=== PATIENT | female | born 1955 | race Caucasian/White ===

== ENCOUNTER → 2016-08-13 | Outpatient (CLI) | payer BC ==
[2013-04-06 09:15] VITALS: BP 155/98
[~2016-08-13] MED LIST: ALLOPURINOL100 MG PO; AMLODIPINE BESYL5 MG PO; CHLORTHALIDONE25 MG PO; FLEXERIL10 MG PO; FLUTICASON0.05 MG/A1 PO; IBUPROFEN800 MG PO; SINGULAIR; See Long Drug Name PO; VITAMIN C500 MG PO
== END ==
LOC: LAB 09:20
DX: I10 Essential (primary) hypertension (principal); D64.9 Anemia, unspecified; M10.9 Gout, unspecified

== ENCOUNTER → 2016-09-14 | Outpatient (CLI) | payer BC ==
[2013-04-06 09:15] VITALS: BP 155/98
== END ==
LOC: MAMMO 07:01
DX: Z12.31 Encounter for screening mammogram for malignant neoplasm of breast (principal)
CPT/HCPCS: G0202

== ENCOUNTER → 2016-09-19 | Outpatient (CLI) | payer BC ==
[2013-04-06 09:15] VITALS: BP 155/98
== END ==
LOC: LAB 08:41
DX: Z01.419 Encounter for gynecological examination (general) (routine) without abnormal findings (principal); D53.9 Nutritional anemia, unspecified; E87.6 Hypokalemia; R73.9 Hyperglycemia, unspecified

== ENCOUNTER → 2016-10-09 | Outpatient (CLI) | payer BC ==
[2013-04-06 09:15] VITALS: BP 155/98
== END ==
LOC: LAB 09:25
DX: J45.20 Mild intermittent asthma, uncomplicated (principal); D53.9 Nutritional anemia, unspecified; I10 Essential (primary) hypertension; E87.6 Hypokalemia

== ENCOUNTER → 2016-11-13 | Outpatient (CLI) | payer BC ==
[2013-04-06 09:15] VITALS: BP 155/98
== END ==
LOC: LAB 09:07
DX: E87.6 Hypokalemia (principal); R60.9 Edema, unspecified; I10 Essential (primary) hypertension

== ENCOUNTER 2017-01-18 08:55 | Outpatient (RCR) | payer BC ==
[2013-04-06 09:15] VITALS: BP 155/98
[2017-02-25] MEDS ORDERED: POTASSIUM CHLO10 ME6 PO (14:16)
[2017-02-25] MEDS ORDERED: ALLOPURINOL300 M1 PO (14:17)
[2017-02-25] MEDS ORDERED: ALDACTONE 25MG25 MG PO (14:17)
[2017-02-25] MEDS ORDERED: PRILOSEC 20MG20 MG PO (14:23)
[2017-02-25] MEDS ORDERED: FLOVENT DI250 MCG/Ac IH (14:23)
== END 2017-01-18 09:30 | disposition home or self-care (01) ==
LOC: PT 08:55
DX: M25.561 Pain in right knee (principal); S76.911D Strain of unspecified muscles, fascia and tendons at thigh level, right thigh, subsequent encounter; Z96.652 Presence of left artificial knee joint; X58.XXXD Exposure to other specified factors, subsequent encounter

== ENCOUNTER → 2017-02-25 | Outpatient (CLI) | payer BC ==
[~2017-02-25] VITALS: Ht 157.5 cm; Wt 122.7 kg
[~2017-02-25] MED LIST changes: +ALDACTONE 25MG25 MG PO; +ALLOPURINOL300 M1 PO; +FLOVENT DI250 MCG/Ac IH; +POTASSIUM CHLO10 ME6 PO; +PRILOSEC 20MG20 MG PO
[2017-02-25 09:45] LABS: PROTHROMBIN TIME 8.9 SECONDS (9.0-12.0)
[2017-02-25 09:50] LABS: BUN/CREATININE RATIO 20.2 (6.0-26.0); CALCIUM 10.2 mg/dL (8.4-10.2)
[2017-02-25 10:00] VITALS: BP 161/99
[2017-02-25 10:09] LABS: PH-URINE 6.5 (5.0 - 8.0); URINE APPEARANCE HAZY; URINE BILIRUBIN NEGATIVE (NEGATIVE); URINE BLOOD NEGATIVE (NEGATIVE); URINE COLOR YELLOW; URINE GLUCOSE NEGATIVE (NEGATIVE); URINE KETONE NEGATIVE (NEGATIVE); URINE LEUKOCYTE ESTERASE NEGATIVE (NEGATIVE); URINE NITRATE NEGATIVE (NEGATIVE); URINE PROTEIN(semi-quant) NEGATIVE (NEGATIVE); URINE UROBILINOGEN NORMAL (NORMAL)
[2017-02-25 10:13] LABS: BASO # 0.1 (0.02-0.10); EOS # 0.4 (0.04-0.40); EOS % 4.1 % (1.0-5.0); HEMATOCRIT 43.5 % (37.0-47.0); HEMOGLOBIN 13.7 g/dL (12.5-16.0); LYMPH# 1.9 (1.50-4.00); MEAN CELL VOLUME 80 fl (78-100); MEAN CORPUSCULAR HEMOGLOBIN 25 pg (27-31); MEAN CORPUSCULAR HGB CONC 32 g/dL (33-37); MEAN PLATELET VOLUME 10.9 fl (7.4-10.4); MONO # 0.5 (0.20-0.80); NEU # 5.8 (1.40-6.50); PLATELET COUNT 274 K/mm3 (130-400); RED BLOOD COUNT 5.47 M/mm3 (4.10-5.30); RED CELL DISTRIBUTION WIDTH 14.9 % (11.5-14.5); WHITE BLOOD COUNT 8.7 K/mm3 (4.8-10.8)
== END ==
LOC: AMSURD 09:12
PROVIDERS: Family Medicine
DX: M25.561 Pain in right knee (principal); E87.6 Hypokalemia; I10 Essential (primary) hypertension; M10.9 Gout, unspecified; D53.9 Nutritional anemia, unspecified

== ENCOUNTER 2017-04-30 09:30 | Outpatient (RCR) | payer BC ==
[2017-02-25 10:00] VITALS: BP 161/99
== END 2017-04-30 10:00 | disposition home or self-care (01) ==
LOC: PT 09:30
DX: Z47.1 Aftercare following joint replacement surgery (principal); Z96.651 Presence of right artificial knee joint

== ENCOUNTER → 2017-07-10 | Outpatient (CLI) | payer BC ==
[2017-02-25 10:00] VITALS: BP 161/99
== END ==
LOC: LAB 14:05
DX: R05 Cough (principal)

== ENCOUNTER → 2017-09-02 | Outpatient (CLI) | payer BC ==
[2017-02-25 10:00] VITALS: BP 161/99
== END ==
LOC: LAB 08:57
DX: R06.02 Shortness of breath (principal)

== ENCOUNTER → 2017-10-11 | Outpatient (CLI) | payer BC ==
[2017-02-25 10:00] VITALS: BP 161/99
== END ==
LOC: LAB 09:10
DX: R73.03 Prediabetes (principal); M10.9 Gout, unspecified

== ENCOUNTER → 2018-02-25 | Outpatient (CLI) | payer BC ==
[2017-02-25 10:00] VITALS: BP 161/99
[2018-02-25 09:37] LABS: CALCIUM 9.9 mg/dL (8.4-10.2)
== END ==
LOC: LAB 09:12
PROVIDERS: Family Medicine
DX: E87.6 Hypokalemia (principal)

== ENCOUNTER → 2018-08-12 | Outpatient (CLI) | payer BC ==
[2017-02-25 10:00] VITALS: BP 161/99
[2018-08-12 09:48] LABS: CALCIUM 9.7 mg/dL (8.4-10.2)
== END ==
LOC: LAB 09:17
PROVIDERS: Family Medicine
DX: E87.6 Hypokalemia (principal)

== ENCOUNTER → 2018-12-09 | Outpatient (CLI) | payer BC ==
[2017-02-25 10:00] VITALS: BP 161/99
[2018-12-09 09:07] LABS: HEMOGLOBIN 13.6 g/dL (12.5-16.0); MEAN PLATELET VOLUME 10.6 fl (7.4-10.4); RED BLOOD COUNT 5.41 M/mm3 (4.10-5.30); RED CELL DISTRIBUTION WIDTH 15.6 % (11.5-14.5); WHITE BLOOD COUNT 7.9 K/mm3 (4.8-10.8)
[2018-12-09 09:26] LABS: ALBUMIN 4.1 g/dL (3.4-4.8)
[2018-12-09 09:28] LABS: TOTAL PROTEIN 7.5 g/dL (6.2-8.1)
[2018-12-09 09:30] LABS: TOTAL BILIRUBIN 0.6 mg/dL (0.2-1.2)
== END ==
LOC: LAB 08:50
PROVIDERS: Family Medicine
DX: E87.6 Hypokalemia (principal); I10 Essential (primary) hypertension; D53.9 Nutritional anemia, unspecified; R73.03 Prediabetes; M10.9 Gout, unspecified

== ENCOUNTER → 2018-12-31 | Outpatient (CLI) | payer BC ==
[2017-02-25 10:00] VITALS: BP 161/99
== END ==
LOC: MAMMO 09:01
DX: Z00.00 Encounter for general adult medical examination without abnormal findings (principal); Z13.6 Encounter for screening for cardiovascular disorders; G47.33 Obstructive sleep apnea (adult) (pediatric); K21.9 Gastro-esophageal reflux disease without esophagitis; M25.473 Effusion, unspecified ankle; E78.6 Lipoprotein deficiency; M85.852 Other specified disorders of bone density and structure, left thigh; M85.851 Other specified disorders of bone density and structure, right thigh

== ENCOUNTER → 2019-01-02 | Outpatient (CLI) | payer BC ==
[2017-02-25 10:00] VITALS: BP 161/99
== END ==
LOC: CARDREHAB 08:32 → CARDLAB 10:41
DX: Z00.00 Encounter for general adult medical examination without abnormal findings (principal); Z13.6 Encounter for screening for cardiovascular disorders; G47.33 Obstructive sleep apnea (adult) (pediatric); K21.9 Gastro-esophageal reflux disease without esophagitis; M25.473 Effusion, unspecified ankle; E87.6 Hypokalemia; M85.80 Other specified disorders of bone density and structure, unspecified site
CPT/HCPCS: A9500

== ENCOUNTER → 2019-01-08 | Outpatient (CLI) | payer BC ==
[2017-02-25 10:00] VITALS: BP 161/99
== END ==
LOC: MAMMO 12:15
DX: N63.21 Unspecified lump in the left breast, upper outer quadrant (principal); N60.02 Solitary cyst of left breast

== ENCOUNTER → 2019-06-10 | Outpatient (CLI) | payer BC ==
[2017-02-25 10:00] VITALS: BP 161/99
[2019-06-10 09:48] LABS: POTASSIUM 3.8 mmol/L (3.5-5.1)
[2019-06-10 09:49] LABS: CALCIUM 9.7 mg/dL (8.3-10.5)
== END ==
LOC: LAB 09:00
PROVIDERS: Family Medicine
DX: E87.6 Hypokalemia (principal)

== ENCOUNTER → 2019-12-21 | Outpatient (CLI) | payer MEDICARE ==
[2017-02-25 10:00] VITALS: BP 161/99
[2019-12-21 09:38] LABS: POTASSIUM 3.9 mmol/L (3.5-5.1)
[2019-12-21 09:39] LABS: CALCIUM 9.8 mg/dL (8.3-10.5)
== END ==
LOC: LAB 09:11
PROVIDERS: Family Medicine
DX: E87.6 Hypokalemia (principal)

== ENCOUNTER → 2020-01-14 | Outpatient (CLI) | payer MEDICARE ==
[2017-02-25 10:00] VITALS: BP 161/99
[2020-01-14 10:38] LABS: HEMATOCRIT 45.1 % (37.0-47.0); HEMOGLOBIN 14.2 g/dL (12.5-16.0); MEAN PLATELET VOLUME 10.2 fl (7.4-10.4); RED BLOOD COUNT 5.59 M/mm3 (4.10-5.30); RED CELL DISTRIBUTION WIDTH 14.6 % (11.5-14.5); WHITE BLOOD COUNT 8.9 K/mm3 (4.8-10.8)
== END ==
LOC: LAB 10:19
PROVIDERS: Family Medicine
DX: M10.9 Gout, unspecified (principal); L43.8 Other lichen planus; M85.80 Other specified disorders of bone density and structure, unspecified site; E87.6 Hypokalemia; Z86.2 Personal history of diseases of the blood and blood-forming organs and certain disorders involving the immune mechanism

== ENCOUNTER → 2020-01-26 | Outpatient (CLI) | payer MEDICARE ==
[2017-02-25 10:00] VITALS: BP 161/99
== END ==
LOC: MAMMO 09:06
DX: Z12.31 Encounter for screening mammogram for malignant neoplasm of breast (principal)

== ENCOUNTER → 2020-10-31 | Outpatient (CLI) | payer MEDICARE ==
[2020-10-31 09:51] LABS: CALCIUM 9.5 mg/dL (8.3-10.5); HEMATOCRIT 43.6 % (37.0-47.0); HEMOGLOBIN 13.8 g/dL (12.5-16.0); MEAN PLATELET VOLUME 10.3 fl (7.4-10.4); RED BLOOD COUNT 5.37 M/mm3 (4.10-5.30); RED CELL DISTRIBUTION WIDTH 14.1 % (11.5-14.5); WHITE BLOOD COUNT 8.4 K/mm3 (4.8-10.8)
[2020-10-31 09:53] LABS: TOTAL PROTEIN 6.9 g/dL (6.2-8.1)
[2020-10-31 09:55] LABS: TOTAL BILIRUBIN 0.5 mg/dL (0.2-1.2)
== END ==
LOC: LAB 09:13
PROVIDERS: Family Medicine
DX: Z13.220 Encounter for screening for lipoid disorders (principal); E87.6 Hypokalemia; Z86.2 Personal history of diseases of the blood and blood-forming organs and certain disorders involving the immune mechanism; Z87.39 Personal history of other diseases of the musculoskeletal system and connective tissue

== ENCOUNTER → 2020-11-25 | Outpatient (CLI) | payer MEDICARE ==
[2020-11-25 09:14] LABS: POTASSIUM 3.9 mmol/L (3.5-5.1)
[2020-11-25 09:16] LABS: CALCIUM 9.7 mg/dL (8.3-10.5)
== END ==
LOC: LAB 08:39
PROVIDERS: Family Medicine
DX: E87.6 Hypokalemia (principal)

== ENCOUNTER → 2021-01-26 | Outpatient (CLI) | payer MEDICARE ==
[2021-01-26 10:02] LABS: POTASSIUM 3.7 mmol/L (3.5-5.1)
[2021-01-26 10:03] LABS: CALCIUM 10.3 mg/dL (8.3-10.5)
== END ==
LOC: MAMMO 08:57
PROVIDERS: Family Medicine
DX: Z13.820 Encounter for screening for osteoporosis (principal); E87.6 Hypokalemia

== ENCOUNTER → 2021-01-26 | Outpatient (CLI) | payer MEDICARE | LOC: MAMMO 09:01 | DX: Z12.31 Encounter for screening mammogram for malignant neoplasm of breast (principal) ==

== ENCOUNTER → 2022-03-29 | Outpatient (CLI) | payer MEDICARE ==
[2022-03-29 09:25] LABS: BASO # 0.05 K/mm3 (0.02-0.10); HEMATOCRIT 47.3 % (37.0-47.0); HEMOGLOBIN 14.6 g/dL (12.5-16.0); LYMPH# 1.49 K/mm3 (1.50-4.00); MEAN CELL VOLUME 83 fl (78-100); MEAN CORPUSCULAR HEMOGLOBIN 26 pg (27-31); MEAN CORPUSCULAR HGB CONC 31 g/dL (33-37); MEAN PLATELET VOLUME 10.3 fl (7.4-10.4); MONO # 0.72 K/mm3 (0.20-0.80); NEU # 7.72 K/mm3 (1.40-6.50); PLATELET COUNT 253 K/mm3 (130-400); RED BLOOD COUNT 5.72 M/mm3 (4.10-5.30); RED CELL DISTRIBUTION WIDTH 14.5 % (11.5-14.5)
[2022-03-29 09:49] LABS: ALBUMIN 4.3 g/dL (3.4-4.8); POTASSIUM 4.1 mmol/L (3.5-5.1)
[2022-03-29 09:50] LABS: CALCIUM 10.4 mg/dL (8.3-10.5)
[2022-03-29 09:51] LABS: TOTAL PROTEIN 7.4 g/dL (6.2-8.1)
[2022-03-29 09:53] LABS: TOTAL BILIRUBIN 0.5 mg/dL (0.2-1.2)
== END ==
LOC: LAB 09:04
PROVIDERS: Family Medicine
DX: U07.1 COVID-19 (principal); I10 Essential (primary) hypertension; R05.9 Cough, unspecified; Z86.2 Personal history of diseases of the blood and blood-forming organs and certain disorders involving the immune mechanism; Z87.39 Personal history of other diseases of the musculoskeletal system and connective tissue; Z13.220 Encounter for screening for lipoid disorders

== ENCOUNTER → 2023-01-02 | Outpatient (CLI) | payer MEDICARE | LOC: LAB 09:23 | DX: Z13.1 Encounter for screening for diabetes mellitus (principal); E66.01 Morbid (severe) obesity due to excess calories ==

== ENCOUNTER → 2023-02-01 | Outpatient (CLI) | payer MEDICARE | LOC: MAMMO 07:57 | DX: Z12.31 Encounter for screening mammogram for malignant neoplasm of breast (principal) ==

== ENCOUNTER → 2023-04-03 | Outpatient (CLI) | payer MEDICARE ==
[2023-04-03 09:01] LABS: HEMATOCRIT 46.9 % (37.0-47.0); HEMOGLOBIN 14.4 g/dL (12.5-16.0); MEAN PLATELET VOLUME 10.1 fl (7.4-10.4); RED BLOOD COUNT 5.55 M/mm3 (4.10-5.30); WHITE BLOOD COUNT 9.7 K/mm3 (4.8-10.8)
[2023-04-03 09:09] LABS: ALBUMIN 4.1 g/dL (3.4-4.8)
[2023-04-03 09:10] LABS: CALCIUM 10.1 mg/dL (8.3-10.5)
[2023-04-03 09:11] LABS: TOTAL PROTEIN 6.9 g/dL (6.2-8.1)
[2023-04-03 09:13] LABS: TOTAL BILIRUBIN 0.4 mg/dL (0.2-1.2)
== END ==
LOC: LAB 08:39
PROVIDERS: Family Medicine
DX: Z13.220 Encounter for screening for lipoid disorders (principal); I10 Essential (primary) hypertension; L43.9 Lichen planus, unspecified; L29.8 Other pruritus; Z86.2 Personal history of diseases of the blood and blood-forming organs and certain disorders involving the immune mechanism; Z87.39 Personal history of other diseases of the musculoskeletal system and connective tissue

== ENCOUNTER → 2023-11-06 | Outpatient (CLI) | payer MEDICARE | LOC: RAD 11:08 | DX: M47.814 Spondylosis without myelopathy or radiculopathy, thoracic region (principal) ==

== ENCOUNTER → 2024-02-07 | Outpatient (CLI) | payer MEDICARE ==
[2024-02-07 11:22] LABS: CALCIUM 10.7 mg/dL (8.3-10.5)
== END ==
LOC: LAB 10:57
PROVIDERS: Family Medicine
DX: I10 Essential (primary) hypertension (principal)